=== PATIENT | male | born 1965 | race African-American/Black ===

== ENCOUNTER 2017-07-08 10:58 | Inpatient (IN) | payer OTHER ==
[2017-07-08 11:08] VITALS: BMI 26.6
--- NOTE | 2017-07-08 12:42 | HP ---
CIWA Score - CIWA Score Nausea/Vomitin Muscle Tremors: 3 Anxiety: 3 Agitation: 3 Paroxysmal Sweats: 3 Orientation: 0-Oriented Tacttile Disturbances: 1-Very Mild Itch/Numbness Auditory Disturbances: 0-None Visual Disturbances: 0-None Headache: 2-Mild CIWA-Ar Total Score: 18 Admission [facility] Chief Complaint: alcohol withdrawal sx Allergies/Adverse Reactions: Allergies Allergy/AdvReac Type Severity Reaction Status Date / Time No Known Allergies Allergy Verified 07/08/17 11:38 History of Present Illness: 52 yo m with h/o alcohol use disorder and crack cocaine dependence admitted for inpatient detoxicafication from alcohol because of alcohol withdrawal sx reported when he does not drink, has had dts in past, deneis h/o seizures. PMHX depression , no SI at this time, no suicide attempts in past,r eports being thirsty Exam Limitations: No Limitations - Ebola screening Have you traveled outside of the country in the last 21 days: No (N) Have you had contact with anyone from an Ebola affected area: No Have you been sick,other than usual withdrawal symptoms: No Do you have a fever: No - Review of Systems Constitutional: Chills, Diaphoresis, Night Sweats, Changes in sleep, Weakness, Unintentional Wgt. Loss EENT: reports: No Symptoms Reported Respiratory: reports: No Symptoms reported Cardiac: reports: No Symptoms Reported GI: reports: Nausea, Poor Appetite, Poor Fluid Intake, Abdominal cramping : reports: No Symptoms Reported Musculoskeletal: reports: Back Pain, Muscle Pain (withdrawal pains) Integumentary: reports: Flushing, Sweating Neuro: reports: Headache, Numbness, Tingling, Tremors Endocrine: reports: Increased Thirst, Unexplained Weight Loss Hematology: reports: No Symptoms Reported Psychiatric: reports: Judgement Intact, Mood/Affect Appropiate, Orientated x3, Anxious, Depressed Other Systems: Reviewed and Negative Patient History - Patient Medical History Hx Anemia: No Hx Asthma: No Hx Chronic Obstructive Pulmonary Disease (COPD): No Hx Cancer: No Hx Cardiac Disorders: No Hx Congestive Heart Failure: No Hx Hypertension: Yes Hx Hypercholesterolemia: Yes Hx Pacemaker: No HX Cerebrovascular Accident: No Hx Seizures: No Hx Dementia: No Hx Diabetes: No Hx Gastrointestinal Disorders: No Hx Liver Disease: No Hx Genitourinary Disorders: No Hx Sexually Transmitted Disorders: No Hx Renal Disease (ESRD): No Hx Thyroid Disease: No Hx Human Immunodeficiency Virus (HIV): No (neg) Hx Hepatitis C: No Hx Depression: Yes Hx Suicide Attempt: Yes (denies si and suicid attempts at this time, did not last admission) Hx Bipolar Disorder: No Hx Schizophrenia: No - Patient Surgical History Past Surgical History: Yes Hx Neurologic Surgery: No Hx Cataract Extraction: No Hx Cardiac Surgery: No Hx Lung Surgery: No Hx Breast Surgery: No Hx Breast Biopsy: No Hx Abdominal Surgery: No Hx Appendectomy: No Hx Cholecystectomy: No Hx Genitourinary Surgery: No Hx Section: No Hx Orthopedic Surgery: Yes (Lower Back, localized with "needles" ) Anesthesia Reaction: No - PPD History Previous Implant?: Yes Documented Results: Negative w/proof Implanted On Prior [facility] Admission?: Yes PPD to be Administered?: Yes - Reproductive History Patient is a Female of Child Bearing Age (11 -55 yrs old): No Patient : No - Smoking Cessation Smoking history: Current every day smoker Have you smoked in the past 12 months: Yes Aproximately how many cigarettes per day: 20 Cigars Per Day: 0 Hx Chewing Tobacco Use: No Initiated information on smoking cessation: Yes 'Breaking Loose' booklet given: 07/08/17 - Substance & Tx. History Hx Alcohol Use: Yes Hx Substance Use: Yes Substance Use Type: Alcohol, Cocaine Hx Substance Use Treatment: Yes ([facility]) - Substances Abused Alcohol Route: Oral Frequency: Daily Amount used: 2 pint of vodka Age of first use: 7 Date of Last Use: 07/08/17 Cocaine Route: Smoking Frequency: Daily Amount used: $100 Age of first use: 31 Date of Last Use: 07/08/17 Family Disease History - Family Disease History Family Disease History: Diabetes: Mother (ALCOHOL, cocaine), Other: Brother ( ALCOHOL,DRUG), Sister (ALCOHOL,DRUG) Admission Physical Exam BHS - Vital Signs Vital Signs: Vital Signs - 24 hr 07/08/17 11:02 Temperature 97.8 F Pulse Rate 96 H Respiratory 18 Rate Blood Pressure 109/78 - Physical General Appearance: Yes: Nourished, Appropriately Dressed, Disheveled, Mild Distress, Tremorous, Irritable, Sweating, Anxious HEENTM: Yes: Within Normal Limits, EOMI, Hearing grossly Normal, Normal ENT Inspection, Normocephalic, Normal Voice, ROSAMARIA, Pharynx Normal Respiratory: Yes: Within Normal Limits, Chest Non-Tender, Lungs Clear, Normal Breath Sounds, No Respiratory Distress, No Accessory Muscle Use Neck: Yes: Within Normal Limits, No masses,lesions,Nodules, Supple, Trachea in good position Breast: Yes: Breast Exam Deferred Cardiology: Yes: Within Normal Limits, Regular Rhythm, Regular Rate, S1, S2 Abdominal: Yes: Within Normal Limits, Normal Bowel Sounds, Non Tender, Flat, Soft Genitourinary: Yes: Within Normal Limits Back: Yes: Within Normal Limits, Normal Inspection Musculoskeletal: Yes: full range of Motion, Gait Steady, Pelvis Stable, Back pain, Muscle Pain Extremities: Yes: Normal Capillary Refill, Normal Range of Motion, Tremors Neurological: Yes: patient services representative II-XII NML intact, Fully Oriented, Alert, Motor Strength 5/5, Normal Response, Depressed Affect Integumentary: Yes: Normal Color, Dry, Warm, Diaphoresis, Other (dry skin) Lymphatic: Yes: Within Normal Limits - Addiitonal Findings: withdrawal sx noted - Diagnostic (1) Alcohol dependence with uncomplicated withdrawal Current Visit: Yes Status: Acute (2) Major depressive disorder, recurrent Current Visit: No Status: Acute (3) Cocaine dependence Current Visit: No Status: Chronic (4) Hypercholesteremia Current Visit: No Status: Chronic (5) Nicotine dependence Current Visit: No Status: Chronic Cleared for Admission [facility] - Detox or Rehab [facility] Level of Care: Medically Managed Detox Regimen/Protocol: Librium [facility] Breath Alcohol Content Breath Alcohol Content: 0 Urine Drug Screen - Results Drug Screen Negative: No Urine Drug Screen Results: NAVYA-Cocaine, BZO-Benzodiazepines
[2017-07-08] MEDS ORDERED: chlordiazePOXIDE HCL 25 MG CAPSULE PO PRN ×8 (12:43→15:30)
[2017-07-08] MEDS ORDERED: LOPERAMIDE HCL 2 MG CAPSULE PO PRN ×7 (12:43→15:30)
[2017-07-08] MEDS ORDERED: MAGNESIUM CITRATE 300 ML BOTTLE PO PRN ×7 (12:43→15:30)
[2017-07-08] MEDS ORDERED: guaiFENesin/D-METHORPHAN HB 10 ML UNIT-DOSE CUPS PO PRN ×7 (12:43→15:30)
[2017-07-08] MEDS ORDERED: chlordiazePOXIDE HCL 25 MG CAPSULE PO ONE ×5 (12:43→14:33)
[2017-07-08] MEDS ORDERED: IBUPROFEN 400 MG TABLET (FP) PO PRN ×7 (12:43→15:30)
[2017-07-08] MEDS ORDERED: P-EPHED 60MG/TRIPROLIDI 2.5MG TABLET PO PRN ×7 (12:43→15:30)
[2017-07-08] MEDS ORDERED: MENTHOL/PHENOL 1 EACH UD MM PRN ×7 (12:43→15:30)
[2017-07-08] MEDS ORDERED: hydrOXYzine PAMOATE 50 MG CAPSULE (FP) PO PRN ×7 (12:43→15:30)
[2017-07-08] MEDS ORDERED: MAG HYDROX/AL HYDROX/SIMETH 30 ML UNIT-DOSE CUP PO PRN ×7 (12:43→15:30)
[2017-07-08] MEDS ORDERED: NICOTINE POLACRILEX 4 MG GUM BC PRN ×5 (12:43→15:30)
[2017-07-08] MEDS ORDERED: ACETAMINOPHEN 325 MG TABLET (FP) PO PRN ×7 (12:43→15:30)
[2017-07-08] MEDS ORDERED: MAGNESIUM HYDROX 2400MG/30ML ORAL SUSPENSION 30 ML CUP PO PRN ×7 (12:43→15:30)
[2017-07-08] MEDS ORDERED: ASPIRIN COATED 81 MG TABLET.EC PO SCH ×6 (12:45→14:15)
[2017-07-08] MEDS ORDERED: NICOTINE 21 MG/24 HOURS TOPICAL PATCH TD SCH ×6 (12:45→15:30)
[2017-07-08] MEDS ORDERED: AMMONIUM LACTATE 12% LOTION 225 GM BOTTLE TP PRN ×7 (12:50→15:30)
[2017-07-08] MEDS ORDERED: NICOTINE POLACRILEX 4 MG GUM BUC PRN ×2 (14:07→15:30)
[2017-07-08] MEDS ORDERED: chlordiazePOXIDE HCL 25 MG CAPSULE PO SCH ×7 (17:00)
[2017-07-08] MEDS: chlordiazePOXIDE HCL 25 MG CAPSULE PO SCH ×2 (18:23→22:32)
[2017-07-08] MEDS ORDERED: THIAMINE HCL 100 MG TABLET (FP) PO SCH ×6 (22:00)
[2017-07-08] MEDS ORDERED: ATORVASTATIN CA 40 MG TABLET (FP) PO SCH ×6 (22:00)
[2017-07-08] MEDS: ATORVASTATIN CA 40 MG TABLET (FP) PO SCH (22:32)
[2017-07-08] MEDS: THIAMINE HCL 100 MG TABLET (FP) PO SCH (22:32)
[2017-07-09] MEDS: chlordiazePOXIDE HCL 25 MG CAPSULE PO SCH ×2 (06:17→10:35)
[2017-07-09] MEDS ORDERED: PRENATAL VITAMINS W/ FOLIC ACID TABLET (FP) PO SCH ×6 (10:00)
[2017-07-09] MEDS: PRENATAL VITAMINS W/ FOLIC ACID TABLET (FP) PO SCH (10:05)
[2017-07-09] MEDS: ASPIRIN COATED 81 MG TABLET.EC PO SCH (10:05)
[2017-07-09] MEDS: NICOTINE 21 MG/24 HOURS TOPICAL PATCH TD SCH (10:06)
--- NOTE | 2017-07-09 10:48 | PN ---
S CIWA - CIWA Score Nausea/Vomitin-No Nausea/No Vomiting Muscle Tremors: 3 Anxiety: 4-Mod. Anxious/Guarded Agitation: 4-Moderately Restless Paroxysmal Sweats: 1-Minimal Palms Moist Orientation: 0-Oriented Tacttile Disturbances: 1-Very Mild Itch/Numbness Auditory Disturbances: 0-None Visual Disturbances: 0-None Headache: 0-None Present CIWA-Ar Total Score: 13 BHS Progress Note (SOAP) Subjective: PT EXHIBITS IRRITABILITY,ANXIETY,AND ARGUMENTATIVE BEHAVIOR. LIMITED INSIGHT TO EXPLANATION OF DETOX PROTOCOL. REFUSED LIBRIUM THIS MORNING STATING DOES NOT LIKE THE TINGLE IN HIS MOUTH. NO KNOWN ALLERGY. PT WILLING TO TAKE VALIUM INSTEAD. Objective: 07/09/17 10:43 Vital Signs Temperature 98.1 F 07/09/17 08:56 Pulse Rate 92 H 07/09/17 08:56 Respiratory Rate 20 07/09/17 08:56 Blood Pressure 129/89 07/09/17 08:56 O2 Sat by Pulse Oximetry (%) NO LABS DRAWN OWN THIS PT. LABS REORDERED. Assessment: 07/09/17 10:48 WITHDRAWAL SX Plan: CONTINUE DETOX D/C LIBRIUM PROTOCOL AND START VALIUM PROTOCOL
[2017-07-09] MEDS ORDERED: diazePAM 5 MG TABLET PO PRN (10:51)
[2017-07-09] MEDS ORDERED: diazePAM 5 MG TABLET PO ONE (10:51)
--- NOTE | 2017-07-09 11:11 | CONSULT ---
[facility] Psychiatric Consult - Data Date of interview: 07/09/17 Admission source: [facility] Identifying data: Readmission to [facility] for this 52 y/o AA male seeking detox treatment on for alccohol and cocaine dependence.Patient is single ,a father of one,homeless,unemployed and supported on SSI benefits. Substance Abuse History: Confirmed by patient in this interview.See current [facility] report for details : Smoking history: Current every day smoker. Have you smoked in the past 12 months: Yes. Aproximately how many cigarettes per day: 20. Cigars Per Day: 0. Hx Chewing Tobacco Use: No. Initiated information on smoking cessation: Yes. 'Breaking Loose' booklet given: 07/08/17. - Substance & Tx. History. Hx Alcohol Use: Yes. Hx Substance Use: Yes. Substance Use Type : Alcohol, Cocaine. Hx Substance Use Treatment: Yes ([facility] ). - Substances Abused. Alcohol. Route: Oral. Frequency: Daily. Amount used: 2 pint of vodka. Age of first use: 7. Date of Last Use: 07/08/17. Cocaine. Route: Smoking. Frequency: Daily. Amount used: $100. Age of first use: 31. Date of Last Use: 07/08/17 Medical History: Hypertension,lower back pain and dyslipidemia. Psychiatric History: Patient admits to a history of multiple psychiatric hospitalizations.Diagnosed with MDD.Used to be prescribed remeron 45 mg/hs + seroquel 300 mg/hs.Mr Rueda indicates that he sees a psychiatrist at a clinic in [facility].He is a vague,evasive and irritable historian.Denies history of suicide attempts. Physical/Sexual Abuse/Trauma History: Patient denies. Additional Comment: Urine Drug Screen Results: NAVYA-Cocaine, BZO- Benzodiazepines.Noted. Mental Status Exam - Mental Status Exam Alert and Oriented to: Time, Place, Person Cognitive Function: Good Patient Appearance: Well Groomed Mood: Angry, Nervous, Withdrawn, Irritable Affect: Mood Congruent Patient Behavior: Fatigued, Uncooperative, Guarded Speech Pattern: Clear, Inappropriate (profane language) Voice Loudness: Normal Thought Process: Goal Oriented Thought Disorder: Not Present Hallucinations: Denies Suicidal Ideation: Denies Homicidal Ideation: Denies Insight/Judgement: Poor Sleep: Poorly, Difficulty falling asleep Appetite: Good Muscle strength/Tone: Normal Gait/Station: Normal Psychiatric Findings - Problem List ([place] 1, 2,3) (1) Alcohol dependence with uncomplicated withdrawal Current Visit: Yes Status: Acute (2) Cocaine dependence Current Visit: Yes Status: Acute Qualifiers: Substance use status: uncomplicated Qualified Code(s): F14.20 - Cocaine dependence, uncomplicated (3) Nicotine dependence Current Visit: Yes Status: Acute Qualifiers: Nicotine product type: cigarettes Substance use status: in withdrawal Qualified Code(s): F17.213 - Nicotine dependence, cigarettes, with withdrawal (4) Substance induced mood disorder Current Visit: Yes Status: Acute (5) Insomnia Current Visit: Yes Status: Acute - Initial Treatment Plan Initial Treatment Plan: Psychoeducation.Detoxification in progress.Sleep hygiene discussed in session.Medications : seroquel 200 mg po hs + remeron 15 mg po hs (confirmed by pharmacy claims of 06/19/17).Side effects/benefits reviewed with patient.Mr Rueda consented (verbally) to resume these medications.Observation.
--- NOTE | 2017-07-09 13:20 | EKG ---
Test Reason : Blood Pressure : / mmHG Vent. Rate : 087 BPM Atrial Rate : 087 BPM P-R Int : 158 ms QRS Dur : 090 ms QT Int : 406 ms P-R-T Axes : 081 071 061 degrees QTc Int : 488 ms NORMAL SINUS RHYTHM PROLONGED QT ABNORMAL ECG NO PREVIOUS ECGS AVAILABLE Confirmed by MD Jason, Jeremias ([id number]) on 07/09/2017 1:20:28 PM Referred By: Confirmed By:Jeremias Gomez MD
[2017-07-09] MEDS: diazePAM 5 MG TABLET PO SCH ×2 (13:31→22:05)
[2017-07-09 15:16] LABS: ALBUMIN 2.9 g/dl (3.4-5.0); ALK PHOS 73 U/L (45-117); ANION GAP 8 (8-16); BILIRUBIN,TOTAL 0.2 mg/dL (0.2-1.0); CALCIUM 8.3 mg/dL (8.5-10.1); CO2 28 mmol/L (21-32); CREATININE 1.1 mg/dL (0.7-1.3); GLUCOSE,RANDOM 98 mg/dL (74-106); MCH 30.6 pg (25.7-33.7); MCHC 32.8 g/dl (32.0-35.9); MEAN CELL VOLUME 93.2 fl (80-96); MEAN PLT VOLUME 9.3 fl (7.5-11.1); PLATELET COUNT 183 K/MM3 (134-434); SGOT/AST 13 U/L (15-37); SGPT/ALT 25 U/L (12-78); TOT PROT 6.1 g/dl (6.4-8.2); WHITE BLOOD COUNT 5.4 K/mm3 (4.0-10.0)
[2017-07-09] MEDS ORDERED: chlordiazePOXIDE HCL 25 MG CAPSULE PO SCH ×8 (17:00)
[2017-07-09] MEDS ORDERED: QUEtiapine FUMARATE 200 MG TABLET PO SCH (22:00)
[2017-07-09] MEDS ORDERED: MIRTAZAPINE 15 MG TABLET (FP) PO SCH (22:00)
[2017-07-09] MEDS: ATORVASTATIN CA 40 MG TABLET (FP) PO SCH (22:05)
[2017-07-09] MEDS: THIAMINE HCL 100 MG TABLET (FP) PO SCH (22:05)
--- NOTE | 2017-07-10 09:50 | PN ---
[facility] CIWA - CIWA Score Nausea/Vomitin-No Nausea/No Vomiting Muscle Tremors: 3 Anxiety: 4-Mod. Anxious/Guarded Agitation: 3 Paroxysmal Sweats: 1-Minimal Palms Moist Orientation: 0-Oriented Tacttile Disturbances: 2-Mild Itch/Numbness/Burn Auditory Disturbances: 0-None Visual Disturbances: 0-None Headache: 0-None Present CIWA-Ar Total Score: 13 S Progress Note (SOAP) Subjective: IRRITABILITY,FATIGUE. PT WAS SPOKEN TO BY THIS PROVIDER AND COUNSELOR, CLARK WILHELM REGARDING REFUSAL TO ENGAGE IN DETOX PROTOCOLS SUCH TAKING HIS REQUIRED MEDICATIONS,ROUTINE H/P CXR, AND VITAL SIGNS. EXPLAINED TO PT THE VOLUNTARY NATURE OF DETOX TREATMENT AND NEED FOR THOSE WHO REQUIRE TREATMENT. PT VERBALIZED READINESS TO ENGAGE GOING FORWARD. Objective: 07/10/17 09:50 Vital Signs Temperature 96.6 F L 07/10/17 09:16 Pulse Rate 19 L 07/10/17 09:16 Respiratory Rate 73 H 07/10/17 09:16 Blood Pressure 133/93 07/10/17 09:16 O2 Sat by Pulse Oximetry (%) Laboratory Last Values WBC 5.4 K/mm3 (4.0-10.0) 07/09/17 11:25 RBC 4.23 M/mm3 (4.00-5.60) 07/09/17 11:25 Hgb 12.9 GM/dL (11.7-16.9) 07/09/17 11:25 Hct 39.5 % (35.4-49) 07/09/17 11:25 MCV 93.2 fl (80-96) 07/09/17 11:25 MCH 30.6 pg (25.7-33.7) 07/09/17 11:25 MCHC 32.8 g/dl (32.0-35.9) 07/09/17 11:25 RDW 14.0 % (11.9-15.9) 07/09/17 11:25 Plt Count 183 K/MM3 (134-434) 07/09/17 11:25 MPV 9.3 fl (7.5-11.1) 07/09/17 11:25 Sodium 145 mmol/L (136-145) 07/09/17 11:25 Potassium 3.9 mmol/L (3.5-5.1) 07/09/17 11:25 Chloride 109 mmol/L (98-107) H 07/09/17 11:25 Carbon Dioxide 28 mmol/L (21-32) 07/09/17 11:25 Anion Gap 8 (8-16) 07/09/17 11:25 BUN 12 mg/dL (7-18) D 07/09/17 11:25 Creatinine 1.1 mg/dL (0.7-1.3) 07/09/17 11:25 Creat Clearance w eGFR > 60 (>60) 07/09/17 11:25 Random Glucose 98 mg/dL (74-106) 07/09/17 11:25 Calcium 8.3 mg/dL (8.5-10.1) L 07/09/17 11:25 Total Bilirubin 0.2 mg/dL (0.2-1.0) 07/09/17 11:25 AST 13 U/L (15-37) L D 07/09/17 11:25 ALT 25 U/L (12-78) 07/09/17 11:25 Alkaline Phosphatase 73 U/L (45-117) 07/09/17 11:25 Total Protein 6.1 g/dl (6.4-8.2) L 07/09/17 11:25 Albumin 2.9 g/dl (3.4-5.0) L 07/09/17 11:25 RPR Titer Reactive 1:1 (NONREACTIVE) H 07/09/17 11:25 T.pallidum Ab (MHA) Previously reactive (NONREACTIVE) 07/09/17 11:25 LABS NOTED ROUTINE CXR ORDERED AND RESULT PENDING. Assessment: 07/10/17 09:53 WITHDRAWAL SX Plan: CONTINUE DETOX INCREASE PO FLUIDS
[2017-07-10] MEDS ORDERED: diazePAM 5 MG TABLET PO SCH ×2 (10:00→14:00)
[2017-07-10] MEDS: NICOTINE 21 MG/24 HOURS TOPICAL PATCH TD SCH (10:04)
[2017-07-10] MEDS: ASPIRIN COATED 81 MG TABLET.EC PO SCH (10:04)
[2017-07-10] MEDS: PRENATAL VITAMINS W/ FOLIC ACID TABLET (FP) PO SCH (10:04)
[2017-07-10] MEDS ORDERED: chlordiazePOXIDE 5 MG CAPSULE PO SCH ×8 (17:00)
--- NOTE | 2017-07-10 17:11 | PN ---
S Progress Note Note: called by nurse, patient is signing out AMA, no explanation given, risks of not completing deto x as ordered discussed [id number] overdose and .
--- NOTE | 2017-07-10 17:14 | DS ---
[facility] Detox Discharge Summary Admission Date: 07/08/17 Discharge Date: 07/10/17 - History Present History: Alcohol Dependence, Cannabis Dependence, Cocaine Dependence Additional Comments: pateitn refusing to complete detox, signing out ama, risks discussed with patient by nurse Pertinent Past History: anxiety, depression, insomnia, nicotine dependence - Physical Exam Results Vital Signs: Vital Signs Temperature 97.1 F L 07/10/17 13:28 Pulse Rate 81 07/10/17 13:28 Respiratory Rate 20 07/10/17 13:28 Blood Pressure 133/92 07/10/17 13:28 O2 Sat by Pulse Oximetry (%) Pertinent Admission Physical Exam Findings: withdrawal sx - Treatment Hospital Course: Detox Protocol Followed Patient has Accepted a Rehab Referral to: No - Medication Discharge Medications: Ambulatory Orders Quetiapine Fumarate [Seroquel -] 300 mg PO BID 11/11/13 Mirtazapine [Remeron -] 30 mg PO HS #30 tablet 03/15/14 Olanzapine [Zyprexa] 20 mg PO HS 07/31/14 Aspirin Coated [Ecotrin -] 81 mg PO DAILY #0 tablet.ec 08/04/14 Atorvastatin Ca [Lipitor] 40 mg PO HS #0 tablet 08/04/14 Mirtazapine [Remeron -] 15 mg PO HS #30 tablet 07/09/17 Quetiapine Fumarate [Seroquel -] 200 mg PO HS #30 tab 07/09/17 - Diagnosis (1) Alcohol dependence with uncomplicated withdrawal Current Visit: Yes Status: Acute (2) Major depressive disorder, recurrent Current Visit: No Status: Acute (3) Cocaine dependence Current Visit: Yes Status: Acute Qualifiers: Substance use status: uncomplicated Qualified Code(s): F14.20 - Cocaine dependence, uncomplicated (4) Hypercholesteremia Current Visit: Yes Status: Chronic (5) Nicotine dependence Current Visit: Yes Status: Acute Qualifiers: Nicotine product type: cigarettes Substance use status: in withdrawal (6) Cannabis dependence Current Visit: Yes Status: Acute - AMA Did Patient Leave Against Medical Advice: Yes
[2017-07-10 17:36] VITALS: BP 118/76; PULSE 86; TEMP 98.3
[2017-07-11] MEDS ORDERED: diazePAM 5 MG TABLET PO SCH (10:00)
[2017-07-11] MEDS ORDERED: chlordiazePOXIDE HCL 10 MG CAPSULE PO SCH ×8 (17:00)
[2017-07-12] MEDS ORDERED: diazePAM 5 MG TABLET PO SCH (10:00)
[2017-07-13] MEDS ORDERED: diazePAM 5 MG TABLET PO SCH (10:00)
== END 2017-07-10 17:25 | disposition left against medical advice (07) | DRG 770 ==
LOC: YASAS 10:58 → UNDOADMIN 13:23 → Y6N 13:23 → INTOOBSV 13:28 → EDLOC 13:28 → OBSVTOIN 13:29 → EDLOC 13:29 → UNDODISIN 13:55 → YASAS 14:07 → Y3N 14:07 → UNDODISIN 15:27 → Y3N 20:36
PROVIDERS: ADMIT Internal Medicine; ATTEND Internal Medicine
PROC: HZ2ZZZZ Detoxification Services for Substance Abuse Treatment (ICD-10-PCS; principal; 2017-07-08)
DX: F10.230 Alcohol dependence with withdrawal, uncomplicated (principal); F14.20 Cocaine dependence, uncomplicated; F12.20 Cannabis dependence, uncomplicated; F17.210 Nicotine dependence, cigarettes, uncomplicated; F33.9 Major depressive disorder, recurrent, unspecified; F19.24 Other psychoactive substance dependence with psychoactive substance-induced mood disorder; E78.5 Hyperlipidemia, unspecified; G47.00 Insomnia, unspecified; Z91.5 Personal history of self-harm
CPT/HCPCS: 36415; 71020-TC; 80053; 85027; 86593; 86780; 93005; 93010; G0378